=== PATIENT | male | born 1975 | race Asian ===

== ENCOUNTER → 2019-04-10 15:18 | Outpatient (CLI) | payer OTHER | END | disposition home or self-care (01) | LOC: AMB 15:18 | DX: Z04.1 Encounter for examination and observation following transport accident (principal) ==

== ENCOUNTER 2019-04-10 15:50 | Emergency (ER) | payer OTHER ==
[~2019-04-10] VITALS: Ht 167.6 cm; Wt 68.9 kg
[2019-04-10 20:20] VITALS: BP 150/88; TEMP 98.7
== END 2019-04-10 20:20 | disposition home or self-care (01) ==
LOC: ED 15:50
DX: S20.211A Contusion of right front wall of thorax, initial encounter (principal); S39.012A Strain of muscle, fascia and tendon of lower back, initial encounter; V49.40XA Driver injured in collision with unspecified motor vehicles in traffic accident, initial encounter
CPT/HCPCS: 99283

== ENCOUNTER 2020-11-17 09:39 | Outpatient (CLI) | payer OTHER | END 2020-11-17 19:32 | disposition home or self-care (01) | LOC: US 09:39 | PROVIDERS: ATTEND Nurse Practitioner Family | DX: K40.90 Unilateral inguinal hernia, without obstruction or gangrene, not specified as recurrent (principal) ==